=== PATIENT | male | born 1975 | race Caucasian/White ===

== ENCOUNTER → 2016-11-25 | Outpatient (CLI) | payer OTHER | LOC: FIMAGING 14:27 | DX: N50.0 Atrophy of testis (principal); N44.00 Torsion of testis, unspecified; N43.3 Hydrocele, unspecified ==

== ENCOUNTER → 2018-07-19 | Outpatient (CLI) | payer OTHER | LOC: GIMAGING 09:45 | PROVIDERS: ATTEND Nurse Practitioner | DX: R05 Cough (principal) | CPT/HCPCS: 71046-PO ==